=== PATIENT | female | born 1995 | race Caucasian/White ===

== ENCOUNTER 2021-02-05 09:41 | Day surgery (SDC) | payer BC ==
[~2021-02-05 09:41] MED LIST: Lactated Ringers 1,000 ML IV SCH; Sodium Chloride 0.9% 10 ML Syringe FLUSH PRN; Sodium Chloride 0.9% 2.5 ML Syringe FLUSH PRN; Sodium Chloride 0.9% 20 ML SDV IV PRN; ceFAZolin 2 GM in Premix Bag 1 BAG IV ONE
--- NOTE | 2021-02-05 10:31 | PCM.PREANE ---
Preanesthetic Assessment - Procedure Proposed Procedure: Lap Yasmine - Anesthesia/Transfusion/Family Hx Anesthesia History: Prior Anesthesia Reaction Other Type of Anesthesia Reaction Comment: "I needed a NEB tx in PACU after colonoscopy" Family History of Anesthesia Reaction: No Transfusion History: No Prior Transfusion(s) - Review of Systems General: No Symptoms Pulmonary: No Symptoms (Asthma) Cardiovascular: No Symptoms Gastrointestinal: No Symptoms (GERD takes Tums or Pepto Bismol) Neurological: No Symptoms Other: Reports: None (Ankylosing spondylitis, Attention Def Disorder on Adderol), Anxiety (on zoloft) - Physical Assessment NPO Status Date: 02/04/21 NPO Status Time: 22:00 Vital Signs: Last Vital Signs Temp 97.3 F 02/05/21 09:56 Pulse 83 02/05/21 09:56 Resp 14 02/05/21 09:56 BP 138/74 02/05/21 09:56 Pulse Ox 100 02/05/21 09:56 Height: 5 ft 1 in Weight: 66.678 kg ASA Class: 2 Mental Status: Alert & Oriented x3 Airway Class: Mallampati = 2 Dentition: Reports: Normal Dentition Thyro-Mental Finger Breadths: 3 Mouth Opening Finger Breadths: 3 ROM/Head Extension: Full Lungs: Clear to Auscultation, Normal Respiratory Effort Cardiovascular: Regular Rate, Regular Rhythm - Lab Values: Laboratory Last Values Urine HCG, Qual NEGATIVE (NEGATIVE) 02/05/21 09:55 - Allergies Allergies/Adverse Reactions: Allergies Allergy/AdvReac Type Severity Reaction Status Date / Time codeine Allergy Nausea and Verified 02/02/21 09:23 Vomiting pork derived (porcine) Allergy Nausea and Verified 02/02/21 09:23 Vomiting - Acknowledgements Anesthesia Type Planned: General Anesthesia Pt an Appropriate Candidate for the Planned Anesthesia: Yes Alternatives and Risks of Anesthesia Discussed w Pt/Guardian: Yes Pt/Guardian Understands and Agrees with Anesthesia Plan: Yes PreAnesthesia Questionnaire HEENT History: Reports: None Cardiovascular History: Reports: None Respiratory History: Reports: Asthma Gastrointestinal History: Reports: GERD, Irritable Bowel Syndrome Genitourinary History: Reports: None Musculoskeletal History: Reports: Back Pain, Chronic, Other (See Below) Other Musculoskeletal History: ankylosing spondylitis Neurological History: Reports: Concussion, Migraines Psychiatric History: Reports: ADD, Anxiety, Depression, PTSD Endocrine/Metabolic History: Reports: None Hematologic History: Reports: None Immunologic History: Reports: None Oncologic (Cancer) History: Reports: None Dermatologic History: Reports: Eczema - Past Surgical History Head Surgeries/Procedures: Reports: None HEENT Surgical History: Reports: Adenoidectomy, Naso-Sinus Surgery, Tonsillectomy Cardiovascular Surgical History: Reports: None Respiratory Surgical History: Reports: None GI Surgical History: Reports: Colonoscopy Female Surgical History: Reports: None Endocrine Surgical History: Reports: None Neurological Surgical History: Reports: None Musculoskeletal Surgical History: Reports: None Oncologic Surgical History: Reports: None Dermatological Surgical History: Reports: None - SUBSTANCE USE Tobacco Use Status *Q: Never Tobacco User - HOME MEDS Home Medications: Home Meds Albuterol Sulfate [Albuterol Sulfate Hfa] 1 - 2 puff INH ASDIRECTED PRN 01/30/21 [History] Amphetamine/Dextroamphetamine [Adderall] 10 mg PO BID 01/30/21 [History] Fluticasone Propionate [Flovent HFA 110 MCG] 1 - 2 puff INH BID 01/30/21 [History] Sertraline [Zoloft] 100 mg PO BEDTIME 01/30/21 [History] Calcium Carbonate [Tums] 1 tab.chew CHEW ASDIRECTED PRN 02/02/21 [History] Multivitamin 1 tab PO DAILY 02/02/21 [History] Multivitamin with Minerals [Hair, Skin and Nails] 1 tab PO DAILY 02/02/21 [History] - CURRENT (IN HOUSE) MEDS Current Meds: Current Medications Lactated Ringer's (Ringers, Lactated) 1,000 mls @ 125 mls/hr IV ASDIRECTED [place] Last Admin: 02/05/21 10:03 Dose: 125 mls/hr Documented by: Sodium Chloride (Sodium Chloride 0.9% 2.5 Ml Syringe) 2.5 ml FLUSH ASDIRECTED PRN PRN Reason: Keep Vein Open Sodium Chloride (Sodium Chloride 0.9% 20 Ml Sdv) 10 ml IV ASDIRECTED PRN PRN Reason: IV Use Sodium Chloride (Sodium Chloride 0.9% 10 Ml Syringe) 10 ml FLUSH ASDIRECTED PRN PRN Reason: Keep Vein Open Discontinued Medications Cefazolin Sodium/Dextrose 2 gm (/ Premix) 50 mls @ 100 mls/hr IV ONETIME ONE Stop: 02/02/21 14:29
[2021-02-05] MEDS ORDERED: Octyl 2-Cyanoacrylate 1 Tube ONE (10:36)
[2021-02-05] MEDS ORDERED: Propofol 200 MG/20 ML SDV ONE (10:36)
[2021-02-05] MEDS ORDERED: fentaNYL 100 MCG/2 ML SDV ONE ×2 (10:36→13:12)
[2021-02-05] MEDS ORDERED: Bupivacaine 0.5% 30 ML SDV ONE (10:36)
[2021-02-05] MEDS ORDERED: Midazolam 1 MG/ML 2 ML SDV ONE (10:36)
[2021-02-05] MEDS ORDERED: Rocuronium Bromide 50 MG/5 ML Syringe ONE (10:37)
[2021-02-05] MEDS ORDERED: Water For Injection, Sterile 20 ML ONE (10:37)
[2021-02-05] MEDS ORDERED: Dexmedetomidine 200 MCG/2 ML SDV ONE (10:37)
[2021-02-05] MEDS ORDERED: Esmolol 100 MG/10 ML SDV ONE (10:37)
[2021-02-05] MEDS ORDERED: Dexamethasone 4 MG/ML 5 ML MDV ONE (10:37)
[2021-02-05] MEDS ORDERED: Ondansetron 4 MG/2 ML SDV ONE (12:25)
[2021-02-05] MEDS ORDERED: Sugammadex Sodium 200 MG/2 ML VIAL ONE (12:25)
--- NOTE | 2021-02-05 13:07 | PCM.OPNOTE ---
- General Post-Op/Procedure Note Date of Surgery/Procedure: 02/05/21 Operative Procedure(s): Laparoscopic cholecystectomy Findings: Normal appearing gallbladder. Omental adhesions to the liver capsule Pre Op Diagnosis: Biliary dyskinesia Post-Op Diagnosis: same Anesthesia Technique: General ET Tube Primary Surgeon: Anne Esposito Pathology: gallbladder Fluid Replacement, Intraop: 1,000 Output, Urine Amount: 75 EBL in mLs: 10 Condition: Good
[2021-02-05] MEDS ORDERED: Naloxone 0.4 MG/ML SDV IVPUSH PRN (13:08)
[2021-02-05] MEDS ORDERED: Ondansetron 4 MG/2 ML SDV IVPUSH PRN (13:08)
[2021-02-05] MEDS ORDERED: HYDROmorphone 1 MG/ML Syringe IVPUSH PRN (13:08)
[2021-02-05] MEDS ORDERED: fentaNYL 100 MCG/2 ML SDV IVPUSH PRN (13:08)
[2021-02-05] MEDS ORDERED: Albuterol 0.083% 2.5 MG/3 ML Neb Soln NEB PRN (13:08)
[2021-02-05] MEDS ORDERED: Metoclopramide 10 MG/2 ML SDV IVPUSH PRN (13:08)
--- NOTE | 2021-02-05 13:14 | PCM.POSTAN ---
POST ANESTHESIA ASSESSMENT - MENTAL STATUS Mental Status: Somnolent - VITAL SIGNS Vital Signs: Last Vital Signs Temp 97.3 F 02/05/21 09:56 Pulse 83 02/05/21 09:56 Resp 14 02/05/21 09:56 BP 138/74 02/05/21 09:56 Pulse Ox 100 02/05/21 09:56 - RESPIRATORY Respiratory Status: Respiratory Rate WNL, Airway Patent, O2 Saturation Stable - CARDIOVASCULAR CV Status: Pulse Rate WNL, Blood Pressure Stable - GASTROINTESTINAL GI Status: No Symptoms - PAIN Free Text/Narrative:: Resting comfortably - POST OP HYDRATION Hydration Status: Adequate & Stable
--- NOTE | 2021-02-05 13:25 | PCM48HPAN ---
Post Anesthesia Note - EVALUATION WITHIN 48HRS OF ANESTHETIC Vital Signs in Normal Range: Yes Patient Participated in Evaluation: Yes Respiratory Function Stable: Yes Airway Patent: Yes Cardiovascular Function Stable: Yes Hydration Status Stable: Yes Pain Control Satisfactory: Yes Nausea and Vomiting Control Satisfactory: Yes Mental Status Recovered: Yes Vital Signs: Last Vital Signs Temp 97.9 F 02/05/21 13:00 Pulse 72 02/05/21 13:15 Resp 22 H 02/05/21 13:15 BP 102/38 L 02/05/21 13:15 Pulse Ox 93 L 02/05/21 13:15 - COMMENTS/OBSERVATIONS Free Text/Narrative:: Pt doing well post-op. VSS. No apparent anesthetic complications. Dr. Arnulfo [place]
--- NOTE | 2021-02-05 17:40 | OR ---
SURGEON: ANNE MARSHALL MD DATE OF PROCEDURE: 02/05/2021 PREOPERATIVE DIAGNOSIS: Biliary dyskinesia. POSTOPERATIVE DIAGNOSIS: Biliary dyskinesia. PROCEDURE PERFORMED: Laparoscopic cholecystectomy. PRIMARY SURGEON: Anne Marshall MD ANESTHESIA: General endotracheal anesthesia. FLUIDS: 1000 mL of crystalloid. ESTIMATED BLOOD LOSS: 10 mL. URINE OUTPUT: 75 mL. FINDINGS: Normal-appearing gallbladder. Omental adhesions to the liver capsule around the gallbladder. COMPLICATIONS: None. INDICATIONS: Patient is a 25-year-old female who presents with postprandial right upper quadrant pain. A HIDA scan recently showed decreased ejection fraction consistent with biliary dyskinesia. The patient and I discussed the need for a laparoscopic, possible open cholecystectomy. I explained the procedure, expected perioperative course, and the risks. She verbalized understanding and wishes to proceed. PROCEDURE IN DETAIL: Patient was brought in to the OR and placed on the OR table in supine position. A time-out was completed verifying the patient's name, age, date of , allergies, and procedure to be performed. General endotracheal anesthesia was induced. The left arm was tucked at the patient's side and a Perdomo catheter placed. The abdomen was prepped and draped in usual standard fashion. I anesthetized the infraumbilical fold with 0.5% Marcaine plain. An 11-blade was used to make an incision along the infraumbilical fold. Cautery was used to dissect down to the level of the subcutaneous fat. I then bluntly dissected down to the fascia. The fascia was elevated with Kochers and incised sharply using a curved Lam scissors. I then used a hemostat to open up the peritoneum. Entry into the abdomen was palpated digitally. A 12 mm Hal trocar was inserted in the abdomen. It was insufflated and a 5 mm 30-degree scope was inserted. I inspected the area underneath my initial trocar placement. No damage to surrounding structures was noted. The patient was placed into reverse Trendelenburg position and airplaned slightly to the left. 5 mm trocars were placed in the following locations under direct visualization; one in the epigastric area, one in the right flank, and one 2 fingerbreadths below the right subcostal margin in the midclavicular line. The dome of the gallbladder was grasped and elevated. After elevating the gallbladder, I noticed that the patient had omental adhesions along the lateral edge of the liver capsule. These were taken down using hook cautery and gentle blunt dissection. This allowed safer mobilization of the gallbladder without pulling on the liver capsule. I then turned my attention to the infundibulum. I cleared away the peritoneal attachments around the cystic duct and cystic artery using hook cautery and blunt dissection. Once I identified these structures, I then cleared away one-third of my cystic plate. Once my critical view was achieved, a photograph was taken. I then doubly clipped and ligated my cystic duct and artery. The remainder of the attachments of the gallbladder were taken down using hook cautery. A small branching vessel was noted along the back wall. This was clipped and ligated to prevent any bleeding. Once the gallbladder was removed from the liver bed, it was placed in an EndoCatch bag and removed through the 12 mm port site. During my mobilization of the gallbladder, a small rent was made and a small amount of bile was spilled into the abdomen. I suctioned this out and irrigated the right upper quadrant until the fluid ran clear. A photograph was taken of my operative field. There was no evidence of bile leakage and the area appeared hemostatic. My 5 mm trocars were removed under direct visualization and the abdomen was allowed to desufflate. The 12 mm Hal trocar was removed as well. The fascia at the infraumbilical port site was closed with interrupted 0 Vicryl sutures. The subcutaneous layer was closed with interrupted 3-0 Vicryl sutures. The skin was closed with a running 4-0 Monocryl stitch. The 5 mm trocar sites were closed with interrupted 4-0 Monocryl sutures. Dermabond and sterile dressings were applied. The patient tolerated the procedure well, was extubated, and taken to PACU in stable condition. DAVID GALLEGOS /[id number]
== END 2021-02-05 14:43 | disposition home or self-care (01) ==
LOC: MW.SDS 09:41
PROVIDERS: ATTEND Surgery
DX: K82.8 Other specified diseases of gallbladder (principal); K66.0 Peritoneal adhesions (postprocedural) (postinfection); F41.8 Other specified anxiety disorders; J45.40 Moderate persistent asthma, uncomplicated; K21.9 Gastro-esophageal reflux disease without esophagitis; G43.909 Migraine, unspecified, not intractable, without status migrainosus; Z88.5 Allergy status to narcotic agent; Z91.018 Allergy to other foods; Z79.899 Other long term (current) drug therapy; Z98.890 Other specified postprocedural states
CPT/HCPCS: 47562; 81025; A9270; J0131; J0690; J1100; J2250; J2704; J3010; J3490; J7120; 00790; J2405